=== PATIENT | female | born 1955 | race Caucasian/White ===

== ENCOUNTER 2023-09-02 09:57 | Outpatient (CLI) | payer MEDICARE | END 2023-09-02 09:58 | disposition home or self-care (01) | LOC: BICMAMMO 09:57 | PROVIDERS: ATTEND Family Medicine | DX: Z12.31 Encounter for screening mammogram for malignant neoplasm of breast (principal) | CPT/HCPCS: 77063; 77067 ==

== ENCOUNTER 2025-06-05 10:38 | Outpatient (CLI) | payer MEDICARE | END 2025-06-05 10:39 | disposition home or self-care (01) | LOC: BICCT 10:38 | PROVIDERS: ATTEND Orthopaedic Surgery | DX: M17.12 Unilateral primary osteoarthritis, left knee (principal) ==

== ENCOUNTER 2025-06-05 12:01 | Outpatient (CLI) | payer MEDICARE ==
[2025-06-05 13:27] LABS: #Basophils 0.07 10x3/uL (0.0-0.2); #Eosinophils 0.09 10x3/uL (0.0-0.7); #Monocytes 0.58 10x3/uL (0.11-0.59); #Neutrophils 6.58 10x3/uL (1.40-6.50); %Basophils 0.8 % (0.0-1.0); %Eosinophils 1.0 % (0.0-10.0); %Lymphocytes 16.6 % (21.0-51.0); %Monocytes 6.6 % (0.0-10.0); %Neutrophils 74.3 % (42.0-75.0); Hematocrit 46.7 % (36.0-47.0); Hemoglobin 15.3 g/dL (12.0-16.0); Mean Corpuscular Hemoglobin 29.9 pg (27.0-31.0); Mean Corpuscular Volume 91.4 fL (78.0-98.0); Platelet Count 326 10x3/uL (130-400); Red Blood Cell (RBC) Count 5.11 mill/uL (4.20-5.40); White Blood Cell (WBC) Count 8.85 10x3/uL (4.8-10.8)
[2025-06-05 13:47] LABS: INR-International Normal Ratio 1.0; Prothrombin Time 13.4 sec (12.0-14.7)
[2025-06-05 13:49] LABS: Anion Gap 14 mmol/L (10-20); BUN (Urea Nitrogen) 18 mg/dL (9.8-20.1); Calc. Creatinine Clearance 0 mL/min (70-130); Calcium 10.2 mg/dL (7.8-10.44); Carbon Dioxide 24 mmol/L (23-31); Chloride 107 mmol/L (98-107); Glucose 130 mg/dL (83-110); Potassium 4.1 mmol/L (3.5-5.1); Sodium 141 mmol/L (136-145)
[2025-06-05 15:24] LABS: Glucose, Urine (Dipstick) Normal (Negative); Leukocyte 250 Leu/uL (Negative); Protein, Urine (Dipstick) Negative (Neg-Trace); Specific Gravity, Urine 1.014 (1.002-1.036); WBC/HPF 21-50 HPF (0-3)
[2025-06-05 15:47] LABS: Bacteria/HPF 1+ HPF (None Seen)
== END 2025-06-05 12:02 | disposition home or self-care (01) ==
LOC: LABBT 12:01
PROVIDERS: ATTEND Orthopaedic Surgery
DX: Z01.818 Encounter for other preprocedural examination (principal); M17.12 Unilateral primary osteoarthritis, left knee
CPT/HCPCS: 71046; 80048; 81001; 85025; 85610; 87081; 93005; 93010

== ENCOUNTER 2025-06-17 08:31 | Inpatient (IN) | payer MEDICARE ==
[2025-06-14 10:27] VITALS: BMI 33.3
[2025-06-17] MEDS ORDERED: Ropivacaine 0.5% HCl/PF (150 MG/30 ML VIAL) ONE (09:06)
[2025-06-17] MEDS ORDERED: Vancomycin HCl 1.5 GM VIAL ONE ×2 (09:12→09:13)
[2025-06-17] MEDS ORDERED: Tranexamic Acid 1,000 MG/10 ML VIAL ONE ×2 (09:12→12:12)
[2025-06-17] MEDS ORDERED: Ondansetron PF 4 MG/2 ML Vial IVP PRN ×2 (09:15→11:31)
[2025-06-17] MEDS ORDERED: Ropivacaine 0.2% 550 ML 550 ML NERVE BLCK SCH (09:15)
[2025-06-17] MEDS ORDERED: Lidocaine 1% PF 5 ML VIAL ONE (09:16)
[2025-06-17] MEDS ORDERED: PROPOFOL 20 ML ONE (09:16)
[2025-06-17] MEDS ORDERED: Lidocaine 1% (PF) 30 ML VIAL ONE (09:38)
[2025-06-17] MEDS ORDERED: CEFAZOLIN 2 GM VIAL ONE ×2 (09:54→18:33)
[2025-06-17] MEDS ORDERED: Ondansetron PF 4 MG/2 ML Vial ONE (10:09)
[2025-06-17] MEDS ORDERED: PHENYLEPHRINE-NS 100 MCG/ML 10 ML SYRINGE ONE (11:17)
[2025-06-17] MEDS ORDERED: diphenhydrAMINE 25 MG CAP PO PRN (11:31)
[2025-06-17] MEDS ORDERED: Acetaminophen 325 MG TAB PO PRN (11:31)
[2025-06-17] MEDS ORDERED: Ketorolac Tromethamine 30 MG (1 mL) VIAL ONE (12:01)
[2025-06-17] MEDS: Ketorolac Tromethamine 30 MG (1 mL) VIAL IVP SCH (12:03)
[2025-06-17] MEDS ORDERED: fentaNYL PF 100 MCG/2 ML SYRINGE ONE (12:10)
[2025-06-17 16:32] VITALS: BMI 33.3
[2025-06-17] MEDS ORDERED: hydrALAZINE 20 MG/ML VIAL ONE (19:04)
[2025-06-17] MEDS: Ferrous Gluconate 324 MG TAB PO SCH (20:36)
[2025-06-17] MEDS: Senokot S 8.6-50 MG TAB PO SCH (20:36)
[2025-06-17] MEDS: Aspirin 81 mg Enteric Coated Tablet PO SCH (20:36)
[2025-06-18] MEDS: HYDROcodone/Acetaminophen 10/325 mg Tablet PO PRN ×2 (00:20→13:43)
[2025-06-18 06:00] LABS: Hematocrit 36.1 % (36.0-47.0); Hemoglobin 11.9 g/dL (12.0-16.0); Mean Corpuscular Hemoglobin 30.1 pg (27.0-31.0); Mean Corpuscular Volume 91.4 fL (78.0-98.0); Platelet Count 249 10x3/uL (130-400); Red Blood Cell (RBC) Count 3.95 mill/uL (4.20-5.40); White Blood Cell (WBC) Count 15.25 10x3/uL (4.8-10.8)
[2025-06-18] MEDS: Magnesium Oxide 400 MG TAB PO SCH (08:31)
[2025-06-18] MEDS: Valsartan 80 MG TAB PO SCH (08:32)
[2025-06-18] MEDS: Cholecalciferol 1,000 UNITS (25 MCG) TAB PO SCH (08:33)
[2025-06-18] MEDS: Multivitamin W/ Minerals 1 TAB PO SCH (08:34)
[2025-06-18] MEDS ORDERED: Non-Formulary Item 1 EACH (Valsartan/Hydrochlorothiazide [Valsartan-Hctz 160-12.5 Mg Tab] PO SCH (09:00)
[2025-06-18] MEDS ORDERED: Non-Formulary Item 1 EACH (Magnesium Oxide [Magnesium] 400 MG Tablet) PO SCH (09:00)
[2025-06-18] MEDS ORDERED: Non-Formulary Item 1 EACH (Cholecalciferol (Vitamin D3) [Vitamin D3] 5,000 UNITS Capsule) PO SCH (09:00)
[2025-06-18] MEDS ORDERED: Non-Formulary Item 1 EACH (Solifenacin Succinate [Solifenacin Succinate] 5 MG Tablet) PO SCH (09:00)
[2025-06-18] MEDS ORDERED: Non-Formulary Item 1 EACH (Fexofenadine Hcl [Allegra Allergy] 180 MG Tablet) PO SCH (09:00)
[2025-06-19 07:07] LABS: Hematocrit 42.9 % (36.0-47.0); Hemoglobin 13.6 g/dL (12.0-16.0); Mean Corpuscular Hemoglobin 29.4 pg (27.0-31.0); Mean Corpuscular Volume 92.9 fL (78.0-98.0); Platelet Count 269 10x3/uL (130-400); Red Blood Cell (RBC) Count 4.62 mill/uL (4.20-5.40); White Blood Cell (WBC) Count 15.06 10x3/uL (4.8-10.8)
[2025-06-19 12:09] VITALS: BP 146/81; TEMP 97.9
== END 2025-06-19 13:57 | disposition home or self-care (01) | DRG 470 ==
LOC: SDC 08:31 → SURG B 11:31 → OBSVTOIN 06-18 13:49
PROVIDERS: ADMIT Orthopaedic Surgery; ATTEND Orthopaedic Surgery
PROC: 0SRD0JA Replacement of Left Knee Joint with Synthetic Substitute, Uncemented, Open Approach (ICD-10-PCS; principal; 2025-06-17)
DX: M17.0 Bilateral primary osteoarthritis of knee (principal)
CPT/HCPCS: 36415; 85027; A4306; C1713; C1776; C1889; J0360; J0665; J1010; J1100; J1885; J2250; J2405; J2704; J2795; J3010; J3373; J7050